=== PATIENT | male | born 1965 | race African-American/Black ===

== ENCOUNTER 2019-03-13 06:16 | Day surgery (SDC) | payer BC ==
[2019-03-07 10:03] LABS: Absolute Lymphocytes (CBC) 1.2 K/uL (0.7-4.9); Basophils % 0.2 % (0-1.3); Lymphocytes % 36.6 % (15.3-44.8); MPV 10.6 fL (7.6-11.3)
[2019-03-07 10:10] LABS: Protime INR 0.96
[2019-03-07 10:21] LABS: Potassium 3.8 mmol/L (3.5-5.1)
--- NOTE | 2019-03-07 10:46 | RAD REPORT ---
EXAM DESCRIPTION: RAD - Chest Pa And Lat (2 Views) - 03/07/2019 9:49 am CLINICAL HISTORY: Preop chest, pending foot surgery COMPARISON: None. TECHNIQUE: PA and lateral views of the chest were obtained. FINDINGS: The lungs are clear. Heart size is normal and central vasculature is within normal limit s. No pleural effusion or pneumothorax seen. No acute bony finding noted. No aortic abnormality. IMPRESSION: No acute cardiopulmonary process.
--- NOTE | 2019-03-07 12:19 | EKG ---
Test Date: 2019-03-07 Test Time: 09:35:55 [place]er: [place] MEASUREMENT RESULTS: Intervals: Rate: 55 TX: 170 QRSD: 96 QT: 468 QTc: 447 [place]: P: 32 TX: 170 QRS: -23 T: 18 INTERPRETIVE STATEMENTS: Sinus bradycardia with sinus arrhythmia Otherwise normal ECG Compared to ECG 03/12/2016 09:12:49 Sinus rhythm no longer present Electronically Signed On 03-07-19 12:18:31 CDT by Kei Pizano
--- NOTE | 2019-03-12 12:45 | PREOPHP ---
Date of Admission: 03/07/2019 History Of Present Illness: This patient presented to my office with a chief complaint of a painful big toe joint present in the right foot, present for a number of years on and off, but now constant, throbbing in nature, moderate in severity, relieved by rest, worse with activity. Patient has modifi ed in shoe gear. Taken [id number] anti-inflammatories, all to no avail and requests evaluation . Past Medical History: Includes hypertension, gout, GERD, and diverticulitis. Past Surgical History: Patient has previous history of right ACL repair, right rotator cuff, right c arpal tunnel, right ankle surgery, and gastric procedure. Medications: Include esomeprazole, tamsulosin, amlodipine, spironolactone, lisinopril 20 mg, and hyd rochlorothiazide 12.5 mg. Allergies: WELLBUTRIN. Social History: Patient is a former smoker. Admits to occasional beer. No recreational drug use. Family History: Includes diabetes in his uncle and cancer in the aunt. Physical Examination: General: Weight is 270 pounds, height 5 feet 9 inches. Patient is healthy, well developed, well nou rished, well oriented x3. Vascular: Evaluation reveals dorsalis pedis and posterior tibial pulses to be 4/4 bilaterally. Capi llary refill time is less than 3 seconds to all toes. Temperature gradient is within normal limits. There is no claudication complaint, varicosities, or signs of DVT. Musculoskeletal: Evaluation reveals flexible pes planus foot type bilaterally. Subtalar joint shows normal position bilaterally, but there is forefoot supinatus and adductus bilaterally. There is a m edial eminence of the first metatarsal head with range of motion to 80 degrees bilaterally. Equinus is noted to be 5 degrees bilaterally per goniometer measurement. Digital exam reveals a mild contrac ture of the second toe bilaterally, semiflexible in nature. Muscle testing for the lower extremity i s unremarkable. The ankle assessment is within normal limits. Plantar fascia shows no tenderness, s ubcutaneous soft tissue masses are not noted bilaterally. Dermatologic: Evaluation reveals no ulcer tumor or contracture of the skin bilaterally. There is di screte gross on the plantar service surface, too numerous to count, without redness, swelling, temp, or drainage. These are discrete seed corns. Neurologic: Evaluation reveals deep tendon reflexes for the patellar and Achilles to be 5/5 bilatera lly. Vibratory and sharp dull sensation within normal limits. X-ray evaluation of the right foot reveals no fracture, tumor, or degenerative joint disease seen. T he first metatarsal is within normal limits on the lateral view. There is an inferior and posterior calcaneal spur present. There is a lateral deviation of the hallux and sesamoids with increase in th e intermetatarsal angle. Intermetatarsal angle measures 13 degrees. Hallux abductus angle is 15 deg tyree. Diagnoses: Hallux valgus, right foot, metatarsus primus varus, right foot and pain in the right foot joints. The patient has been given orthotics, which did not relieve any discomfort and as mentioned , patient has modified shoe gear, taking anti-inflammatories, which he cannot take in significant ernie unts due to his gastric issues with diverticulitis and GERD. Patient elects for surgical management. Recommended procedures were a first metatarsal osteotomy with bunionectomy and fixation. Patient und erstands risks, benefits, and alternatives of the above-mentioned procedure including, but not limite d to the risk of pain, swelling, numbness, stiffness, infection, nonhealing of skin or bone, recurren ce of the deformity. Risk of DVT and PE have been explained to the patient as well as the signs and symptoms. Patient has had preoperative labs performed. Medical H and P will be done by Anesthesia. Patient has been instructed on use of cold therapy machine with written instructions given, which wi ll be given at postop. Due to lack of response to conservative treatment, patient no longer desires conservative care and requests surgical management. NETO Voice ID: [id number]
--- OUTSIDE RECORDS SUMMARY | 2019-03-13 06:20 | XMS REPORT | Continuity of Care Document ---
:1965 Author Organization [employer] Care Team Providers Name Role Phone [employer] Unavailable Unavailable Problems Problem Status Onset Classification Date Comments Source Date Reported K57.92 Active 01/26/[address] UNK Active 01/26/[address] Colon polyps Resolved Problem 02/11/2016 [facility] Diverticulitis Active Problem 02/11/2016 [facility] High blood Active Problem 02/11/2016 pressure [facility] Obesity Active Problem 02/11/2016 [facility] DVTRCLI OF Active INTEST, PART [facility] UNSP, W/O PERF O Medications Medication Details Route Status Patient Ordering Order Source Instructions Provider Date Acetaminophen 300 1 tab, PO, Active MG / Codeine Q6H, PRN for 2015 Phosphate 30 MG pain, # 30 Oral Tablet tab, 0 [Tylenol with Refill(s) Codeine #3] Spironolactone 25 mg=2 tab, Active PO, Daily, # 2015 60 tab, 0 Refill(s) Hydrochlorothiazid 1 tab, PO, Active e 12.5 MG / BID, 0 2015 Lisinopril 20 MG Refill(s) Oral Tablet Hydrochlorothiazid 1 tab, Route: No Longer e 12.5 MG / PO, Drug Form: Active 2015 Lisinopril 20 MG TAB, Dosing Oral Tablet Weight 119.659, kg, Daily, Start date: 02/07/16 9:00:00 CDT, Duration: 30 day, Stop date: 03/07/16 9:00:00 CDT Spironolactone 25 mg, 1 tab, No Longer Route: PO, Active 2015 Drug form: TAB, BID, Dosing Weight 119.659, kg, Start date: 02/06/16 17:00:00 CDT, Duration: 30 day, Stop date: 03/07/16 9:00:00 CDTNotes: (Same As: Aldactone) Microzide 12.5 mg, 1 No Longer cap, Route: Active 2015 [facility] PO, Drug form: CAP, Daily, Start date: 02/06/16 13:00:00 CDT, Duration: 30 day, Stop date: 03/07/16 9:00:00 CDTNotes: (Same as: Microzide) With food. Prinivil 20 mg, 1 tab, No Longer Route: PO, Active 2015 [facility] Drug form: TAB, Daily, Start date: 02/06/16 13:00:00 CDT, Duration: 30 day, Stop date: 03/07/16 9:00:00 CDTNotes: (Same as: Prinivil, Zestril) Amlodipine 10 mg, 2 tab, No Longer Route: PO, Active 2015 [facility] Drug form: TAB, Daily, Dosing Weight 119.659, kg, Start date: 02/06/16 13:00:00 CDT, Duration: 30 day, Stop date: 03/07/16 9:00:00 CDTNotes: (Same as: Norvasc) Hydrochlorothiazid 1 tab, PO, Active e 12.5 MG / Daily, 0 2015 [facility] Lisinopril 20 MG Refill(s) Oral Tablet Acetaminophen 325 1 tab, Route: No Longer MG / Hydrocodone PO, Drug Form: 2015 [facility] Bitartrate 10 MG TAB, Dosing Oral Tablet [[place] Weight 10/325] 119.659, kg, Q4H, PRN Pain Score 1-3, Start date: 02/06/16 9:39:00 CDT, Duration: 30 day, Stop date: 03/07/16 9:38:00 CDTNotes: Do not exceed 4gm/day of acetaminophen. (Same as: [place] 325/10) Dilaudid 1 mg, 1 mL, No Longer Route: IV, Active 2015 [facility] Drug form: INJ, Q3H, Dosing Weight 119.659, kg, PRN Pain Score 7-10, Start date: 02/06/16 9:37:00 CDT, Duration: 30 day, Stop date: 03/07/16 9:36:00 CDT Pneumovax 23 0.5 mL, Route: Inactive IM, Drug Form: 2015 [facility] INJ, Daily, Start date: 02/05/16 12:44:00 CDT, Duration: 1 doses or times, Stop date: 02/05/16 12:44:00 CDTNotes: (Same as: Pneumovax 23) Refrigerate Lactated Ringers 1,000 mL, No Longer 1,000 mL Rate: 60 Active 2015 [facility] ml/hr, Infuse over: 16.7 hr, Route: IV, Dosing Weight 119.659 kg, Total Volume: 1,000, Start date: 02/05/16 9:12:00 CDT, Stop date: 03/06/16 9:11:00 CDT pneumococcal 0.5 mL, Route: Inactive capsular IM, Drug Form: 2015 [facility] polysaccharide INJ, Daily, type 1 vaccine / Start date: pneumococcal 02/05/16 capsular 9:00:00 CDT, polysaccharide Duration: 1 type 10A vaccine / doses or pneumococcal times, Stop capsular date: 02/05/16 polysaccharide 9:00:00 type 11A vaccine / CDTNotes: pneumococcal (Same as: capsular Pneumovax 23) polysaccharide Refrigerate type 12F vaccine / pneumococcal capsular polysacchar Lovenox 40 mg, 0.4 mL, No Longer Route: SUB-Q, Active 2015 [facility] Drug form: INJ, [id number], Dosing Weight 119.659, kg, Start date: 02/05/16 9:00:00 CDT, Duration: 30 day, Stop date: 03/05/16 9:00:00 CDTNotes: (Same as: Lovenox) Sodium Chloride 500 mL, 500 Inactive 0.154 MEQ/ML ml/hr, Infuse 2015 [facility] Injectable Over: 1 hr, Solution Route: IV, 500, Drug form: INJ, ONCE, Priority: STAT, Dosing Weight 119.659 kg, Start date: 02/05/16 0:17:00 CDT, Duration: 1 doses or times, Stop date: 02/05/16 0:17:00 CDT Famotidine 20 mg, 1 tab, No Longer Route: PO, Active 2015 [facility] Drug form: TAB, Q12H, Dosing Weight 119.659, kg, Start date: 02/04/16 21:00:00 CDT, Duration: 30 day, Stop date: 03/05/16 9:00:00 CDTNotes: (Same as: Pepcid) Cefoxitin 1000 MG 1 gm, Route: No Longer Injection IVPB, ABXQ6H, 2015 [facility] Dosing Weight 119.659, kg, Start date: 02/04/16 21:00:00 CDT, Duration: 1 day, Stop date: 02/05/16 15:00:00 CDTNotes: (Same As: Mefoxin) Flagyl 500 mg, 100 No Longer mL, Route: 2015 [facility] IVPB, Drug form: INJ, ABXQ8H, Start date: 02/04/16 20:00:00 CDT, Duration: 1 day, Stop date: 02/05/16 12:00:00 CDTNotes: (Same as: Flagyl) Avoid alcohol. Ofirmev 1,000 mg, 100 No Longer mL, Route: IV, 2015 [facility] Drug form: INJ, Q6H, Dosing Weight 119.659, kg, for > or=50 kg, Start date: 02/04/16 18:00:00 CDT, Duration: 30 day, Stop date: 03/05/16 12:00:00 CDTNotes: Infuse over 15 minutes Do not exceed 4gm/day of acetaminophen MEDICATION WASTE Product Size: 1000 mg Product Wasted: ___ mg Entereg 12 mg, 1 cap, No Longer Route: PO, 2015 [facility] Drug form: CAP, BID, Dosing Weight 119.659, kg, Start date: 02/04/16 17:00:00 CDT, Duration: 7 day, Stop date: 02/11/16 9:00:00 CDTNotes: Same as: Entereg Maximum of 15 doses Alert Restricted medication Alvimopan (Entergen) order form must be completed prior to dispensing. metroNIDAZOLE 500 mg, Route: Inactive (SCIP) IVPB, Drug 2015 [facility] form: INJ, Q8H, Dosing Weight 119.659, kg, Start date: 02/04/16 16:00:00 CDT, Duration: 1 day, Stop date: 02/05/16 8:00:00 CDT Hydromorphone 15 mg, 30 mL, No Longer Route: IV, Active 2015 [facility] Initial Loading Dose: 0.4mg, ASSOCIATE TECHNICIAN Dose: 0.2 mg, ASSOCIATE TECHNICIAN Lockout: 10 minutes, Continuous Basal Rate: 0 mg, 4 Hour Limit (In MG): 6, Drug Form: INJ, Continuous, Start date: 02/04/16 15:00:00 CDT, Duration: 30 day, Stop date: 03/05/16...Not es: (Same as: Dilaudid) conc=0.5 mg/ml Hydromorphone ASSOCIATE TECHNICIAN Dose: ;Delay: ;Basal: glycopyrrolate Route: IV, Inactive (ANES) Drug form: 2015 [facility] INJ, ONCE, Stop date: 02/04/16 14:58:00 CDT ondansetron (ANES) Route: IV, Inactive Drug form: 2015 [facility] INJ, ONCE, Stop date: 02/04/16 14:58:00 CDT neostigmine (ANES) Route: IV, Inactive Drug form: 2015 [facility] INJ, ONCE, Stop date: 02/04/16 14:58:00 CDT cefOXitin (ANES) Route: IV, Inactive Drug form: 2015 [facility] INJ, ONCE, Stop date: 02/04/16 14:58:00 CDT Naloxone 0.04 mg, 0.1 No Longer mL, Route: Active 2015 [facility] IVP, Drug form: INJ, Q2MIN, Dosing Weight 119.659, kg, PRN Narcotic Reversal, Start date: 02/04/16 14:54:00 CDT, Duration: 30 day, Stop date: 03/05/16 14:53:00 CDTNotes: Same as Narcan NS + KCL 20mEq/L 1,000 mL, No Longer 1000ml (Premix) Rate: 150 Active 2015 [facility] 1,000 mL ml/hr, Infuse over: 6.7 hr, Route: IV, Dosing Weight 119.659 kg, Total Volume: 1,000, Start date: 02/04/16 14:54:00 CDT, Stop date: 03/05/16 14:53:00 CDTNotes: PREMIX IV - Do Not Alter WASTE: F/P - Sink; E - Municipal Trash Bin Promethazine 12.5 mg, 0.5 No Longer mL, Route: Active 2015 [facility] IVPB, Q4H, Dosing Weight 119.659, kg, PRN Nausea & Vomiting, Start date: 02/04/16 14:54:00 CDT, Duration: 30 day, Stop date: 03/05/16 14:53:00 CDTNotes: Do not give IV push. (Same as: Phenergan) Ondansetron 4 mg, 2 mL, No Longer Route: IVP, Active 2015 [facility] Drug form: INJ, Q6H, Dosing Weight 119.659, kg, PRN Nausea & Vomiting, Start date: 02/04/16 14:54:00 CDT, Duration: 30 day, Stop date: 03/05/16 14:53:00 CDTNotes: (Same as: Zofran) MEDICATION WASTE Product Size: 4 mg Product Wasted: ___ mg phenylephrine Route: IV, Inactive (ANES) Drug form: 2015 [facility] INJ, ONCE, Stop date: 02/04/16 13:07:00 CDT cefOXitin (ANES) Route: IV, Inactive (ANES) Drug form: 2015 [facility] INJ, Start date: 02/04/16 13:00:00 CDT, Stop date: 02/04/16 14:00:00 CDT lidocaine (ANES) Route: IV, Inactive Drug form: 2015 [facility] INJ, ONCE, Stop date: 02/04/16 12:57:00 CDT propofol (ANES) Route: IV, Inactive Drug form: 2015 [facility] INJ, ONCE, Stop date: 02/04/16 12:57:00 CDT fentaNYL (ANES) Route: IV, Inactive Drug form: 2015 [facility] INJ, ONCE, Stop date: 02/04/16 12:57:00 CDT succinylcholine Route: IV, Inactive (ANES) Drug form: 2015 [facility] INJ, ONCE, Stop date: 02/04/16 12:57:00 CDT rocuronium (ANES) Route: IV, Inactive Drug form: 2015 [facility] INJ, ONCE, Stop date: 02/04/16 12:57:00 CDT midazolam (ANES) Route: IV, Inactive Drug form: 2015 [facility] SOLN, ONCE, Stop date: 02/04/16 12:52:00 CDT acetaminophen Route: IV, Inactive (ANES) (ANES) Drug form: 2015 [facility] INJ, Start date: 02/04/16 12:37:00 CDT, Stop date: 02/04/16 13:37:00 CDT metroNIDAZOLE Route: IV, Inactive (ANES) (ANES) Drug form: 2015 [facility] INJ, Start date: 02/04/16 12:27:00 CDT, Stop date: 02/04/16 13:27:00 CDT ciprofloxacin Route: IV, Inactive (ANES) (ANES) Drug form: 2015 [facility] INJ, Start date: 02/04/16 12:18:00 CDT, Stop date: 02/04/16 13:18:00 CDT LR 1000 mL INJ Route: IV, Inactive (ANES) Total Volume: 2015 [facility] 1,000, Start date: 02/04/16 12:12:00 CDT, Stop date: 02/04/16 13:12:00 CDT Calcium Chloride 1,000 mL, Inactive 0.0014 MEQ/ML / Rate: 25 2015 [facility] Potassium Chloride ml/hr, Infuse 0.004 MEQ/ML / over: 40 hr, Sodium Chloride Route: IV, 0.103 MEQ/ML / Dosing Weight Sodium Lactate 119.659 kg, 0.028 MEQ/ML Total Volume: Injectable 1,000, Start Solution date: 02/04/16 12:05:00 CDT, Duration: 30 day, Stop date: 03/05/16 12:04:00 CDT Entereg 12 mg, Route: Inactive PO, Drug form: 2015 [facility] CAP, ONCE, Dosing Weight 119.659, kg, Start date: 02/04/16 10:18:00 CDT, Stop date: 02/04/16 10:18:00 CDT Allergies, Adverse Reactions, Alerts Substance Category Reaction Severity Reaction Status Date Comments Source type Reported Wellbutrin Assertion Moderate Drug Active allergy [facility] Immunizations Immunization Date Site Status Last Updated Comments Source Given pneumococcal Left completed [facility] 23-valent 6 deltoid vaccine Results Order Name Results Value Reference Date Interpretation Comments Source Range CHEM PANEL eGFR 77 02/05 Result Comment: The [facility] eGFR is calculated using the CKD-EPI formula. In most young, healthy individuals the eGFR will be >90 mL/min/1.73m2 . The eGFR declines with age. An eGFR of 60-89 may be normal in some populations, particularly the elderly, for whom the CKD-EPI formula has not been extensively validated. Use of the eGFR is not recommended in the following populations:< br/>
Danielle viduals with unstable creatinine concentration s, including patients and those with serious co-morbid conditions.<b r/>
Patie nts with extremes in muscle mass or diet.

The data above are obtained from the National Kidney Disease Education Program (NKDEP) which additionally recommends that when the eGFR is used in patients with extremes of body mass index for purposes of drug dosing, the eGFR should be multiplied by the estimated BMI. CHEM PANEL CO2 27 24 - 32 02/05 [facility] CHEM PANEL AGAP 13.0 10.0 - 07/08 MH 20.0 [facility] CHEM PANEL Calcium Lvl 9.4 8.5 - 10.5 02/05 [facility] CHEM PANEL BUN 14 7 - 22 02/05 [facility] CHEM PANEL Creatinine 1.25 0.50 - 07/08 MH Lvl 1.40 [facility] CHEM PANEL Glucose Lvl 99 70 - 99 02/05 [facility] CHEM PANEL Chloride Lvl 101 95 - 109 02/05 [facility] CHEM PANEL Potassium 4.0 3.5 - 5.1 / Lvl [facility] CHEM PANEL Sodium Lvl 137 135 - 145 07/08 [facility] CHEM PANEL Glucose Lvl 143 70 - 99 02/04 [facility] CHEM PANEL Creatinine 1.78 0.50 - 07 MH Lvl 1.40 [facility] CHEM PANEL BUN 19 7 - 22 02/04 [facility] CHEM PANEL Sodium Lvl 140 135 - 145 02/04 [facility] CHEM PANEL eGFR 50 02/04 Result Comment: The [facility] eGFR is calculated using the CKD-EPI formula. In most young, healthy individuals the eGFR will be >90 mL/min/1.73m2 . The eGFR declines with age. An eGFR of 60-89 may be normal in some populations, particularly the elderly, for whom the CKD-EPI formula has not been extensively validated. Use of the eGFR is not recommended in the following populations:< br/>
Danielle viduals with unstable creatinine concentration s, including patients and those with serious co-morbid conditions.<b r/>
Patie nts with extremes in muscle mass or diet.

The data above are obtained from the National Kidney Disease Education Program (NKDEP) which additionally recommends that when the eGFR is used in patients with extremes of body mass index for purposes of drug dosing, the eGFR should be multiplied by the estimated BMI. CHEM PANEL AGAP 11.6 10.0 - 02/04 20. [facility] CHEM PANEL CO2 28 24 - 32 02/04 [facility] CHEM PANEL Calcium Lvl 8.8 8.5 - 10.5 02/04 [facility] CHEM PANEL Potassium 4.6 3.5 - 5.1 02/04 [facility] CHEM PANEL Chloride Lvl 105 95 - 109 02/04 [facility] CHEM PANEL Calcium Lvl 8.9 8.5 - 10.5 02/04 [facility] CHEM PANEL Phosphorus 3.1 2.5 - 4.5 02/04 [facility] CHEM PANEL Magnesium 2.4 1.8 - 2.4 02/04 [facility] CHEM PANEL eGFR 36 02/04 Result Comment: The [facility] eGFR is calculated using the CKD-EPI formula. In most young, healthy individuals the eGFR will be >90 mL/min/1.73m2 . The eGFR declines with age. An eGFR of 60-89 may be normal in some populations, particularly the elderly, for whom the CKD-EPI formula has not been extensively validated. Use of the eGFR is not recommended in the following populations:< br/>
Danielle viduals with unstable creatinine concentration s, including patients and those with serious co-morbid conditions.<b r/>
Patie nts with extremes in muscle mass or diet.

The data above are obtained from the National Kidney Disease Education Program (NKDEP) which additionally recommends that when the eGFR is used in patients with extremes of body mass index for purposes of drug dosing, the eGFR should be multiplied by the estimated BMI. CHEM PANEL Chloride Lvl 103 95 - 109 02/04 [facility] CHEM PANEL CO2 27 24 - 32 02/04 [facility] CHEM PANEL AGAP 12.0 10.0 - 07/ MH 20.0 /2015 [facility] CHEM PANEL Calcium Lvl 8.9 8.5 - 10.5 02/04 [facility] CHEM PANEL Creatinine 2.32 0.50 - 02/04 MH Lvl 1.40 /2015 [facility] CHEM PANEL Sodium Lvl 137 135 - 145 02/04 [facility] CHEM PANEL Potassium 5.0 3.5 - 5.1 02/04 Lvl /2015 [facility] CHEM PANEL Glucose Lvl 136 70 - 99 02/04 [facility] CHEM PANEL BUN 22 7 - 22 02/04 [facility] HEMATOLOGY Hct 41.4 42.0 - 02/04 MH 54.0 /2015 [facility] HEMATOLOGY Hgb 13.5 14.0 - 02/04 MH 18.0 /2015 [facility] HEMATOLOGY Platelet 195 133 - 450 02/04 [facility] CHEM PANEL Bili Total 0.5 0.2 - 1.3 02/03 [facility] CHEM PANEL Alk Phos 62 39 - 136 02/03 [facility] CHEM PANEL AST 23 0 - 37 02/03 [facility] CHEM PANEL Albumin Lvl 3.4 3.5 - 5.0 02/03 [facility] CHEM PANEL ALT 26 0 - 65 07 [facility] CHEM PANEL Total 9.1 6.4 - 8.4 02/03 [facility] CHEM PANEL A/G Ratio 0.6 0.7 - 1.6 02/03 [facility] CHEM PANEL Globulin 5.7 2.0 - 4.0 02/03 [facility] CHEM PANEL B/C Ratio 10 6 - 25 / [facility] HEMATOLOGY Monocytes # 0.8 0.0 - 0.8 02/03 [facility] HEMATOLOGY Basophils # 0.1 0.0 - 0.2 07/06 MH /2016 [facility] HEMATOLOGY Eosinophils 0.2 0.0 - 0.5 07/06 MH # /2016 [facility] HEMATOLOGY Basophils 0.9 0.0 - 1.0 07/ MH /2015 [facility] HEMATOLOGY Lymphocytes 1.4 1.0 - 5.5 07/ MH # /2016 [facility] HEMATOLOGY Segs-Bands # 5.6 1.5 - 8.1 07/ MH /2015 [facility] HEMATOLOGY Monocytes 9.9 2.0 - 12.0 / /2015 [facility] HEMATOLOGY Eosinophils 2.3 0.0 - 4.0 07/ MH /2016 [facility] HEMATOLOGY Segs 69.4 45.0 - 07 MH 75.0 /2015 [facility] HEMATOLOGY Lymphocytes 17.5 20.0 - / MH 40.0 /2015 [facility] HEMATOLOGY Hgb 14.7 14.0 - 02/03 MH 18.0 /2015 [facility] HEMATOLOGY MPV 9.5 7.4 - 10.4 / /2015 [facility] HEMATOLOGY Platelet 212 133 - 450 / /2015 [facility] MCHC 32.8 32.0 - 02/03 MH 36.0 /2015 [facility] HEMATOLOGY RDW 13.5 11.5 - 02/03 MH 14.5 /2015 [facility] HEMATOLOGY Hct 44.8 42.0 - 02/03 MH 54.0 /2016 [facility] HEMATOLOGY MCV 93.1 80.0 - 02/03 MH 94.0 /2015 [facility] HEMATOLOGY MCH 30.5 27.0 - 02/03 MH 31.0 /2015 [facility] HEMATOLOGY WBC 8.1 3.7 - 10.4 / /2015 [facility] HEMATOLOGY RBC 4.81 4.70 - 02/03 6.10 /2015 [facility] HEMATOLOGY INR 1.02 0.85 - 02/03 1.17 /2015 [facility] HEMATOLOGY PT 13.7 12.0 - 02/03 MH 14.7 /2015 [facility] HEMATOLOGY PTT 29.4 22.9 - 02/03 MH 35.8 /2015 [facility] URINE AND UA <=1.0 0.1 - 1.0 / STOOL Urobilinogen mg/dL /2015 [facility] URINE AND UA WBC 1 0 - 5 / STOOL /2016 [facility] URINE AND UA RBC <1 0 - 2 / STOOL /2016 [facility] URINE AND UA Bacteria Occasional None Seen 02/03 [facility]OOL /HPF /HPF /2015 [facility] URINE AND UA Mucus Few /LPF None Seen 02/03 [facility]OOL /LPF [facility] URINE AND UA Sq Epi Occasional Few /LPF 02/03 [facility]OOL /LPF [facility] URINE AND UA Glucose Negative Negative 02/03 [facility] mg/dL mg/dL [facility] URINE AND UA Ketones Negative Negative 02/03 [facility] mg/dL mg/dL [facility] URINE AND UA Bili Negative Negative 02/03 [facility] *NA* /2015 (02/04/16 10:31 AM) URINE AND UA Blood Negative Negative 02/03 [facility] (02/04/16 10:31 AM) URINE AND UA Nitrite Negative Negative 02/03 [facility] (02/04/16 10:31 AM) [facility] URINE AND UA Leuk Est Trace Negative 02/03 [facility] *ABN* /2015 [facility] (02/04/16 10:31 AM) URINE AND UA Turbidity Clear Clear 02/03 [facility] (02/04/16 10:31 AM) URINE AND UA Color Yellow Yellow 02/03 [facility] *NA* /2015 (02/04/16 10:31 AM) URINE AND UA Spec Grav 1.018 <=1.030 02/03 STOOL [facility] URINE AND UA pH 5.0 5.0 - 8.0 02/03 STOOL [facility] URINE AND UA Protein Negative Negative 02/03 [facility] mg/dL mg/dL [facility] Pathology Reports No Data Provided for This Section Diagnostic Reports Report Value Date Source Renal pyelogram Bilateral retrograde pyelogram: Spot images from the operating room show bilateral ureteral catheters with the tips at the ureteropelvic junctions. Contrast injection shows normal caliber of the collecting systems. 02/04/2016 [facility] retrograde DX SL [id number] Chest 1view DX PA chest: The cardiomediastinal silhouette, pulmonary vasculature and more are within normal limits. The lungs and pleural spaces are clear. There are no significant osseous abnormalities. 02/04/2016 [facility] IMPRESSION: No acute radiographic abnormalities in the chest. SL [id number] Consultation Notes No Data Provided for This Section Discharge Summaries No Data Provided for This Section History and Physicals No Data Provided for This Section Vital Signs Vital Sign Value Date Comments Source Systolic (mm Hg) 147 02/08/2016 [facility] Diastolic (mm Hg) 88 02/08/2016 [facility] Respitory Rate 16 02/08/2016 [facility] Heart Rate 84 02/08/2016 [facility] Temperature Oral (F) 98.4 F 02/08/2016 [facility] Heart Rate 60 02/08/2016 [facility] Temperature Oral (F) 98.4 F 02/08/2016 [facility] Respitory Rate 16 02/08/2016 [facility] Systolic (mm Hg) 153 02/08/2016 [facility] Diastolic (mm Hg) 71 02/08/2016 [facility] Temperature Oral (F) 98.8 F 02/08/2016 [facility] Systolic (mm Hg) 154 02/08/2016 [facility] Diastolic (mm Hg) 99 02/08/2016 [facility] Respitory Rate 16 02/08/2016 [facility] Heart Rate 77 02/08/2016 [facility] Height 177.8 cm 01/29/2016 [facility] BMI Calculated 37.85 01/29/2016 [facility] Weight 119.659 01/29/2016 [facility] Encounters Location Location Encounter Encounter Reason Attending ADM DC Status Source Details Type Number For Provider Date Date Visit Outpatient [id number] THEODORO 09/[address] [facility] [place] Outpatient [id number] THEODOROS 01/[address] [facility] [place] Outpatient [id number] THEODOROS 01/[address] [facility] [place] Outpatient [id number] THEODOROS 02/[address] [facility] [place] [id number] Theodoros 02/03 02/07 [facility] [place] [facility] Out[facility] [id number] GRACE CATES 02/15 [facility] [place] [facility] [id number] [facility] [facility] [place] [facility] [id number] [facility] [facility] [place] Procedures Procedure Code Date Perfomer Comments Source Operation [id number] [facility] Assessment and Plan Assessment and Plan Date Source Extracted from:Title: Clinical Document 02/08/2016 [facility] Author: Kena Swartz MD Date: 02/07/16 Progress Daily [facility] Completed: Jan, 15:47 by Kena Swartz MD RM: 320 - 2W, SE C3BW MACK TORRES 50y (: 1965) M Attending: Kena Swartz MD Service: Colon and Rectal Surg Service Reason for Admission: K57.92 Working DRG: Major small and large bowel procedures w/o CC/CHCF Code status: None Specified=FULL CODE Current diet: Isolation: None Documented Allergies: Wellbutrin SUBJECTIVE on soft diet no pain no flatus or BM yet OBJECTIVE General: AOx3, in no acute distress. Cardiovascular: Regular rate and rhythm, no murmurs or gallop. No peripheral edema. Genitourinary: Normal genitalia. Extremities: Normal muscle tone and range of motion; no cyanosis or tenderness. Skin: Normal color, turgor, no rash or cyanosis. Abdomen is soft non-distended, incision site c/d/i; no evidence of purulence ASSESSMENT and EXAM await return of GI function plan for dc home once he has flatus. pathology discussed PLAN and TREATMENT DIAGNOSES and PROBLEMS Ready for Discharge (Yes/No)? [place] still necessary (Yes/No): Line still necessary (Yes/No): 24hr Labs 02/06 1200 Glucose POC 105 H Vitals Tmp(F) Pulse BP RR SpO2 FIO2 02/06 19:00 98.5 75 130/86 16 97 --- 02/06 15:54 98.0 78 149/88 18 93 --- 02/06 11:44 98.7 80 160/98 16 93 --- 02/06 09:16 98.7 73 136/80 18 --- --- 02/06 07:57 99 78 173/118 18 94 --- 24 Hr Tmax: 99.1F (37.28c) at 02/06 00:55 Vital Signs are the last 5 in the past 48 hours. Date Wt(kg) Wt(lb) Ht(cm) Ht(in) Method 01/28 (initial) 119.66 263.25 Measured 01/28 177.80 70.00 Stated I&O Record In Out Bal 02/06 24hr Tot 967 200 767 02/05 24hr Tot 2051 830 1354 Medications (12) Active Scheduled Meds (6): 02/06/16 amLODIPine 10 mg PO Daily 02/05/16 enoxaparin (Lovenox) 40 mg SUB-Q [id number] 02/04/16 famotidine 20 mg PO Q12H 02/06/16 hydrochlorothiazide (Microzide) 12.5 mg PO Daily 02/06/16 lisinopril (Prinivil) 20 mg PO Daily 02/06/16 spironolactone 25 mg PO BID Unscheduled Meds: None PRN Meds (5): 02/06/16 acetaminophen-hydrocodone ([place] 10/325 oral tablet) 1 tab PO Q4H 02/06/16 hydromorphone (Dilaudid) 1 mg IV Q3H 02/04/16 naloxone 0.04 mg IVP Q2MIN 02/04/16 ondansetron 4 mg IVP Q6H 02/04/16 promethazine + sodium chloride 0.9% INJ 50 mL 12.5 mg IVPB Q4H 151.5 ml/hr One Time Meds: None Continuous Infusions (1): 02/05/16 Lactated Ringers 1,000 mL 1,000 mL 60 ml/hr Extracted from:Title: Clinical Document Author: Kena Swartz MD Date: 02/04/16 PREOPERATIVE DIAGNOSIS: Sigmoid diverticulitis. POSTOPERATIVE DIAGNOSIS: Sigmoid diverticulitis. PROCEDURE PERFORMED: Laparoscopic single port left colectomy with stapled coloproctostomy, splenic flexure mobilization. Cysto-stents/ Dr Nelly WEBBER SURGEON: Dr. Swartz. HOT PATCHER: Grace Cates PA-C. ANESTHESIA: General. IV FLUIDS: 2150 cc Crystalloid ESTIMATED BLOOD LOSS: <100 mL. URINE OUTPUT: 250cc SPECIMENS: Sigmoid colon and proximal rectum and 2 intact anastomotic rings. FINDINGS: Adhesions at the left lower quadrand with evidence of sigmoid diverticulosis without acute diverticulitis at this time. COMPLICATIONS: None. DISPOSITION: Tolerated the procedure well, extubated in the operating room and transferred post-anesthesia care unit in stable hemodynamic condition. COUNTS: The sponge counts were correct x 2. INDICATIONS FOR PROCEDURE: The patient is a 50-year-old male who presents for a laparoscopic single port sigmoid colectomy for multiple episodes of previous sigmoid diverticulitis. The patient understands his condition, the opera tive procedure plan, the risk/benefit ratio and the potential risks for complications as discussed in great detail in the office preoperatively, including but not limited to pain, bleeding, infection, a nastomotic leak, anastomotic stricture, need for divertiing ostomy, need for further procedures and surgeries incisional hernia and damage to the abdominal organs and structures and perioperative cardio pulmonary risks. Informed consent was obtained. All questions were answered to the patient's satisfaction. PROCEDURE IN DETAIL: The patient was brought to the operating room, placed on the table in supine position. General endotracheal anesthesia was induced successfully. IV antibiotics were given preoperatively. SCDs were pl aced on bilateral lower extremities as per SKIP protocol. The abdomen was prepped and draped in usual standard sterile fashion. We made a 4-cm incision via the umbilicus. We inserted a single port gel point and insufflated pneumoperitoneum to 15 mmHg. We identified moderate adhesions in the left lower quadrant and performed adhesiolysis in a sharp fashion; subsequently we addressed the sigmoid colo n and we identified evidence of resolved sigmoid diverticulitis with large diverticulae and fecaliths and evidence of dense mesentery at the medial aspect of the sigmoid colon suggesting the site of the previous episodes of diverticulitis. The proximal descending colon appeared normal. We made a window at the origin of the inferior mesenteric artery proximally and distally and dissected the root of th e sigmoid colon mesentery towards the sacral promontory and we identified and preserved the hypogastric nerves. We performed a left ureterolysis. We dissected the left ureter and skeletonized off dens e retroperitoneal adhesions and protected from injury during the procedure. We hemostatically divided the inferior mesenteric artery with the [employer] device and placed an Endoloop PDS and secur ed hemostasis of the PIPER pedicle. We hemostatically mobilized sharply the descending colon and sigmoid colon medially off the white line of Toldt and entered the presacral avascular space and carried t he dissection towards the proximal rectum and divided the mesorectum at that site at the confluence of the tinea coli and elected a point of distal division and included with the specimen the superior h emorrhoidal artery in a hemostatic fashion and we used an Ovett 60 mm blue triple line Endo-OSMEL and divided the rectum at that site. We mobilized the splenic flexure which was done by mobilizing the s plenocolic, phrenocolic and gastrocolic ligaments and we entered via the antimesenteric border of greater omentum into the lesser sac and completed the mobilization at that site. We identified and pres erved the Gerota's fascia as well as the tail of the pancreas and the spleen and mobilized adequately the colon for a tension-free stapled coloproctostomy. We exteriorized the specimen and evacuat ed the pneumoperitoneum and divided proximally in a sharp fashion with a #10 blade scalpel and passed the specimen to pathology for permanent sections and placed a 28-mm circular Covidean stapler anvil with 3-0 Prolene pursestring and reintroduced into the abdomen and performed a tension-free torsion free stapled coloproctostomy with a #28 mm circular Covidien stapler and retrieved 2 intact anastomoti c rings. The anastomosis was tested for air leak. With rigid proctoscope, we submerged the anastomosis into normal saline in the inner pelvis and compressed proximally and insufflated air with the pro ctoscope and identified no evidence of anastomotic leak. All fluid was suctioned. Hemostasis was satisfactory. We instilled 1 vial Tissel around the anastomosis and the retroperitoneal dissection adilene ne and the procedure was completed. We evacuated the pneumoperitoneum, we placed a single sheet of Seprafilm underneath the midline fascial edges and we approximated the midline fascia edges with #1 PD S in running fashion and obtained hemostasis and approximated the skin edges with dony. The procedure was completed. Extracted from:Title: Clinical Document Author: Kena Swartz MD Date: 02/04/16 [facility] OFFICE VISIT: KENA SWARTZ MD, FACS, FASCRS CC: diverticulitis HPI: The pt presents today for f/u and reports minor improvement in sxs since last office visit. BMs improved after taking the oral abx. But he still complains of pain and "labored BMs". Denies fever, bleeding per rectum Initial HPI: The pt is a 50 year old male kindly referred by Dr. Gr for surgical consultations for sigmoid diverticulitis. They report their first episode on 07/29/15 at which time he presented to an outside ER and was given oral flagyl. CT a/p not available at this time. He then saw Dr. Gr and underwent colonsoco py on 08/05/15 which revealed mild sigmoid colitis, anal fissure, and internal hemorrhoids. He has not had an episode of diverticulitis in the past. Currently the pt reports feeling better. Denies constipation, LLQ pain, bleeding or pain per rectum, diarrhea, nausea, vomiting. However, he still has intermittent rectal bleeding ROS: General: Denies chills, fever, weight loss, weight gain, loss of appetite Eyes: Denies vision loss, retina problems Ears/Nose/Throat: Denies ringing in ears, hearing problems, congestion, dental problems, hoarseness, difficulty swallowing, recent sore throat Cardiovascular: Denies irregular heartbeat, chest pain, heart murmur, abnormal heart valve Pulmonary: Denies productive cough with sputum, shortness of breath, wheezing Genitourinary: Denies frequent urination, blood in urine, urinary incontinence , difficulty urinating, pneumaturia, fecaluri Musculoskeletal: Denies back pain, joint pain, joint swelling Skin: Denies skin rashes, skin itching Neurologic: Denies numbness, weakness, headaches, memory loss, seizures, fainting/blackouts, migraines Psychiatric: Denies anxiety, depression, suicidal thoughts Endocrine: Denies heat/cold intolerance, excessive hunger, excessive thirst, excessive urination, hormonal abnormalities Liver: Denies jaundice Hematologic/Lymphatic: Denies abnormal bleeding, abnormal bruising, enlarged lymph glands PMH: Colon polyps Diverticulitis Operation Operation Tobacco Details: Use: Never smoker. Tobacco smoke exposure: None. Did the Patient Smoke Cigarettes Anytime During the Last 365 Days? No. Cessation Counseling Provided? No. No qualifying data available Allergies: Wellbutrin MEDICATIONS: Medication List Active Medications Documented amLODIPine: 10 mg, PO, Daily, 0 Refill(s). lisinopril: 20 mg, 1 tab, PO, Daily, 0 Refill(s). spironolactone: 25 mg, 1 tab, PO, BID, 0 Refill(s). Medications Inactivated in the Last 72 Hours No medications found. Vitals Tmp(F) Pulse BP RR SpO2 FIO2 01/22 09:11 98.7 --- 136/86 -- --- --- 24 Hr Tmax: 98.7F (37.06c) at 01/22 09:11 Vital Signs are the last 5 in the past 48 hours. PHYSICAL EXAM: General Appearance: Well appearing, well developed, well nourished, well hydrated, good color, and in no acute distress Head: Normocephalic atraumatic Eyes: Pupils equal/round/reactive to light, no scleral icterus, extraocular movements intact, no erythema, no discharge, normal RR, alignment within normal limits Ears: Normal external shape, normal position, normal tympanic membranes, tympanic membranes flat, and normal landmarks Nose: Nares patent and no discharge Mouth: Moist mucous membranes, tongue normal, gingiva normal, palate normal, tonsils normal Neck: Supple, FROM, no thyromegaly, no masses, no cervical lymphadenopathy Chest Wall: No retractions Lungs: CTA bilaterally, no wheezes/rales/rhonchi, and good air entry Heart: Regular rate and regular rhythm, no murmur Abdomen: soft, non distended; persistent LLQ tenderness with minor guarding Musculoskeletal: No obvious deformity. Moves all 4 extremities, stable gait. Lymph: No cervical, axillary or inguinal lymphadenopathy Extremities: Symmetric, no obvious defect, and no cyanosis/clubbing/edema. 2+ pulses in DP/PT/radial bilaterally Neurologic: Alert/appropriate, normal strength, normal tone, and CN II-XII grossly intact. Clear speech, aao x 3. Skin: No nevus no lesions no rash. No jaundice. Psych: Mood congruent affect, responds appropriately to questions. Anorectal: Deferred ASSESSMENT and PLAN: at this time I recommend to proceed with lap single port sigmoid colectomy as he is not improving with medical management he strongly desires to proceed The risks, benefits, and alternatives were discussed with the patient. The risks include, but are not limited to, pain, bleeding, infection, injury to surrounding visceral organs (including nerves, bloo d vessels, ureters, bowel), anastomotic leak, genitourinary dysfunction, need for an ostomy, need for further surgery, and perioperative complications ( myocardial infarction, pulmonary embolus/DVT, pneu monia, ileus, stroke, organ failure, prolonged hospitalization, and ). total exam time spent education, physical exam, and coordination of care > 20minutes Addendum by Kena Swartz MD on 02/04/2016 00:07 No change in the patient's condition since he was last seen in clinic. Plan of Care No Data Provided for This Section Social History Social History Date Source Social History TypeResponse 01/29/2016 [facility] Substance Abuse Use: None. Alcohol Current, Type Beer. Previous treatment: None. Smoking Status Former smoker; Type: Cigarettes; Exposure to Tobacco Smoke None; Cigarette Smoking Last 365 Days No; Reg Smoking Cessation Counseling No Family History No Data Provided for This Section Advance Directives No Data Provided for This Section Functional Status No Data Provided for This Section
--- OUTSIDE RECORDS SUMMARY | 2019-03-13 06:21 | XMS REPORT | Summary of Care ---
:1965 Author Name Rausch Agapito Mirtha Address Unavailable Unavailable , Care Team Providers Name Role Phone TOYA BLAKELY MD Unavailable Unavailable SEPIDEH YOUNG [place], EDISON MAGUIRE Unavailable Unavailable Functional Status Name Dates Details Functional status health issues are not documented Status: Name Dates Details Cognitive status health issues are not documented Status: Problems Name Dates Details Active medical history not documented Status: Medications Name Dates Details Medications not documented Allergies and Adverse Reactions Name Dates Details Allergy history not documented Status: Procedures Procedure Dates Details Procedures not documented Immunization Name Dates Details Immunizations not documented Social History Name Dates Details Unknown if ever smoked Vital Signs Date Test Result Details No Known Vitals to report Results Date Description Value Details Results not documented Plan of Care Name Dates Details Planned Observations Planned Goals not documented Instructions Name Dates Details Instructions not documented Encounters Appointment; EDISON BUNN M.D. On: 04-Oct-2017 8:30 Encounter Diagnosis: Problem not documented Appointment; EDISON BUNN M.D. On: 11-Oct-2017 9:15 Encounter Diagnosis: Problem not documented Appointment; EDISON BUNN M.D. On: 23-Nov-2017 14:15 Encounter Diagnosis: Problem not documented Appointment; EDISON BUNN M.D. On: 13-Dec-2017 15:00 Encounter Diagnosis: Problem not documented Appointment; EDISON BUNN M.D. On: 27-Dec-2017 10:45 Encounter Diagnosis: Problem not documented Appointment; MIKE ORELLANA NP On: 25-Jan-2018 13:15 Encounter Diagnosis: Problem not documented Appointment; MIKE ORELLANA NP On: 08-Mar-2018 13:15 Encounter Diagnosis: Problem not documented Appointment; EDISON BUNN M.D. On: 10-May-2018 13:30 Encounter Diagnosis: Problem not documented
--- OUTSIDE RECORDS SUMMARY | 2019-03-13 06:21 | XMS REPORT | Summary of Care ---
:1965 Author Organization [facility] Address [address] [place], [place] [address]- Encounter HQ Alpa_juan(FIN) [id number] Date(s): 02/04/16 - 02/08/16 [facility] [address] [place] [address]- Discharge Disposition: Home Attending Physician: Kena Swartz MD Admitting Physician: Kena Swartz MD Referring Physician: Kena Swartz MD Vital Signs Most recent to oldest 1 2 3 [Reference Range]: Height 177.8 cm (01/29/16 2:50 PM) Temperature Oral [96.4-99.1 98.4 DegF 98.4 DegF 98.8 DegF DegF] (02/08/16 12:32 PM) (02/08/16 8:30 AM) (02/08/16 3:00 AM) Blood Pressure [90-140/60-90 147/88 mmHg 153/71 mmHg 154/99 mmHg mmHg] *HI* *HI* *HI* (02/08/16 12:32 PM) (02/08/16 8:30 AM) (02/08/16 3:00 AM) Respiratory Rate [14-20 BRMIN] 16 BRMIN 16 BRMIN 16 BRMIN (02/08/16 12:32 PM) (02/08/16 8:30 AM) (02/08/16 3:00 AM) Peripheral Pulse Rate [60-100 84 bpm 60 bpm 77 bpm bpm] (02/08/16 12:32 PM) (02/08/16 8:30 AM) (02/08/16 3:00 AM) Weight 119.659 kg (01/29/16 2:50 PM) Body Mass Index 37.85 m2 (01/29/16 2:50 PM) Problem List Condition Effective Dates Status Health Status Informant Colon polyps(Confirmed) Resolved Diverticulitis(Confirmed) Active Diverticulitis(Confirmed) Resolved High blood pressure(Confirmed) Active Obesity(Confirmed) Active Allergies, Adverse Reactions, Alerts Substance Reaction Severity Status Wellbutrin Moderate Active Medications acetaminophen (ANES) (ANES) Route: IV, Drug form: INJ, Start date: 02/04/16 12:37:00 CDT, Stop date: 13:37:00 CDT Start Date: 02/04/16 Stop Date: 02/04/16 Status: CompletedamLODIPine 10 mg, 2 tab, Route: PO, Drug form: TAB, Daily, Dosing Weight 119.659, kg, Start date: 02/06/16 13:00:00 CDT, Duration: 30 day, Stop date: 03/07/16 9:00: 00 CDT Notes: (Same as: Norvasc) Start Date: 02/06/16 Stop Date: 02/08/16 Status: DiscontinuedcefOXitin (ANES) Route: IV, Drug form: INJ, ONCE, Stop date: 02/04/16 14:58:00 CDT Start Date: 02/04/16 Stop Date: 02/04/16 Status: CompletedcefOXitin (ANES) (ANES) Route: IV, Drug form: INJ, Start date: 02/04/16 13:00:00 CDT, Stop date: 14:00:00 CDT Start Date: 02/04/16 Stop Date: 02/04/16 Status: CompletedcefOXitin (SCIP) + sodium chloride 0.9% INJ 100 mL 1 gm, Route: IVPB, ABXQ6H, Dosing Weight 119.659, kg, Start date: 02/04/16 21:00 :00 CDT, Duration: 1day, Stop date: 02/05/16 15:00:00 CDT Notes: (Same As: Mefoxin) Start Date: 02/04/16 Stop Date: 02/05/16 Status: Completedciprofloxacin (ANES) (ANES) Route: IV, Drug form: INJ, Start date: 02/04/16 12:18:00 CDT, Stop date: 13:18:00 CDT Start Date: 02/04/16 Stop Date: 02/04/16 Status: CompletedDilaudid 1 mg, 1 mL, Route: IV, Drug form: INJ, Q3H, Dosing Weight 119.659, kg, PRN Pain Score 7-10, Start date: 02/06/16 9:37:00 CDT, Duration: 30 day, Stop date: 03/07 9:36:00 CDT Start Date: 02/06/16 Stop Date: 02/08/16 Status: DiscontinuedEntereg 12 mg, 1 cap, Route: PO, Drug form: CAP, BID, Dosing Weight 119.659, kg, Start date: 02/04/16 17:00:00 CDT, Duration: 7 day, Stop date: 02/11/16 9:00:00 CDT Notes: Same as: EnteregMaximum of 15 doses Alert Restricted medication Alvimopan (Entergen) order form must be completed prior to dispensing. Start Date: 02/04/16 Stop Date: 02/05/16 Status: DiscontinuedEntereg 12 mg, Route: PO, Drug form: CAP, ONCE, Dosing Weight 119.659, kg, Start date: 02/04/16 10:18:00 CDT, Stop date: 02/04/16 10:18:00 CDT Start Date: 02/04/16 Stop Date: 02/04/16 Status: Discontinuedfamotidine 20 mg, 1 tab, Route: PO, Drug form: TAB, Q12H, Dosing Weight 119.659, kg, Start date: 02/04/16 21:00:00 CDT, Duration: 30 day, Stop date: 03/05/16 9:00:00 CDT Notes: (Same as: Pepcid) Start Date: 02/04/16 Stop Date: 02/08/16 Status: DiscontinuedfentaNYL (ANES) Route: IV, Drug form: INJ, ONCE, Stop date: 02/04/16 12:57:00 CDT Start Date: 02/04/16 Stop Date: 02/04/16 Status: CompletedFlagyl 500 mg, 100 mL, Route: IVPB, Drug form: INJ, ABXQ8H, Start date: 02/04/16 20:00: 00 CDT, Duration: 1 day, Stop date: 02/05/16 12:00:00 CDT Notes: (Same as: Flagyl) Avoid alcohol. Start Date: 02/04/16 Stop Date: 02/05/16 Status: Completedglycopyrrolate (ANES) Route: IV, Drug form: INJ, ONCE, Stop date: 02/04/16 14:58:00 CDT Start Date: 02/04/16 Stop Date: 02/04/16 Status: Completedhydrochlorothiazide-lisinopril 12.5 mg-20 mg oral tablet 1 tab, PO, Daily, 0 Refill(s) Start Date: 02/06/16 Status: Orderedhydrochlorothiazide-lisinopril 12.5 mg-20 mg oral tablet 1 tab, PO, BID, 0 Refill(s) Start Date: 02/07/16 Status: Orderedhydrochlorothiazide-lisinopril 12.5 mg-20 mg oral tablet 1 tab, Route: PO, Drug Form: TAB, Dosing Weight 119.659, kg, Daily, Start date: 02/07/16 9:00:00 CDT, Duration: 30 day, Stop date: 03/07/16 9:00:00 CDT Start Date: 02/07/16 Stop Date: 02/06/16 Status: DeletedHYDROmorphone PATIENT LIAISON 0.5mg/ml 30ml INJ 15 mg 15 mg, 30 mL, Route: IV, Initial Loading Dose: 0.4mg, PATIENT LIAISON Dose: 0.2 mg, PATIENT LIAISON Lockout: 10 minutes, Continuous Basal Rate: 0 mg, 4 Hour Limit (In MG): 6, Drug Form: INJ, Continuous, Start date: 02/04/16 15:00:00 CDT, Duration: 30 day, Stop date: 03/05/16... Notes: (Same as: Dilaudid) conc=0.5 mg/mlHydromorphone PATIENT LIAISON Dose: ;Delay : ;Basal: Start Date: 02/04/16 Stop Date: 02/06/16 Status: DiscontinuedLactated Ringers 1,000 mL 1,000 mL, Rate: 60 ml/hr, Infuse over: 16.7 hr, Route: IV, Dosing Weight 119.659 kg, Total Volume: 1,000, Start date: 02/05/16 9:12:00 CDT, Stop date: 9:11:00 CDT Start Date: 02/05/16 Stop Date: 02/08/16 Status: DiscontinuedLactated Ringers Injection IV 1000 mL 1,000 mL, Rate: 25 ml/hr, Infuse over: 40 hr, Route: IV, Dosing Weight 119.659 kg, Total Volume: 1,000, Start date: 02/04/16 12:05:00 CDT, Duration: 30 day, Stop date: 03/05/16 12:04:00 CDT Start Date: 02/04/16 Stop Date: 02/04/16 Status: Discontinuedlidocaine (ANES) Route: IV, Drug form: INJ, ONCE, Stop date: 02/04/16 12:57:00 CDT Start Date: 02/04/16 Stop Date: 02/04/16 Status: CompletedLovenox 40 mg, 0.4 mL, Route: SUB-Q, Drug form: INJ, [id number], Dosing Weight 119.659, kg , Start date: 02/05/16 9:00:00 CDT, Duration: 30 day, Stop date: 03/05/16 9:00: 00 CDT Notes: (Same as: Lovenox) Start Date: 02/05/16 Stop Date: 02/08/16 Status: DiscontinuedLR 1000 mL INJ (ANES) Route: IV, Total Volume: 1,000, Start date: 02/04/16 12:12:00 CDT, Stop date: 13:12:00 CDT Start Date: 02/04/16 Stop Date: 02/04/16 Status: CompletedmetroNIDAZOLE (ANES) (ANES) Route: IV, Drug form: INJ, Start date: 02/04/16 12:27:00 CDT, Stop date: 13:27:00 CDT Start Date: 02/04/16 Stop Date: 02/04/16 Status: CompletedmetroNIDAZOLE (SCIP) 500 mg, Route: IVPB, Drug form: INJ, Q8H, Dosing Weight 119.659, kg, Start date : 02/04/16 16:00:00 CDT, Duration: 1 day, Stop date: 02/05/16 8:00:00 CDT Start Date: 02/04/16 Stop Date: 02/04/16 Status: DeletedmetroNIDAZOLE (SCIP) 500 mg, Route: IVPB, Drug form: INJ, Q8H, Dosing Weight 119.659, kg, Start date : 02/04/16 16:00:00 CDT, Duration: 1 day, Stop date: 02/05/16 8:00:00 CDT Start Date: 02/04/16 Stop Date: 02/04/16 Status: DeletedMicrozide 12.5 mg, 1 cap, Route: PO, Drug form: CAP, Daily, Start date: 02/06/16 13:00:00 CDT, Duration: 30 day, Stop date: 03/07/16 9:00:00 CDT Notes: (Same as: Microzide) With food. Start Date: 02/06/16 Stop Date: 02/08/16 Status: Discontinuedmidazolam (ANES) Route: IV, Drug form: SOLN, ONCE, Stop date: 02/04/16 12:52:00 CDT Start Date: 02/04/16 Stop Date: 02/04/16 Status: Completednaloxone 0.04 mg, 0.1 mL, Route: IVP, Drug form: INJ, Q2MIN, Dosing Weight 119.659, kg, PRN Narcotic Reversal, Start date: 02/04/16 14:54:00 CDT, Duration: 30 day, Stop date: 03/05/16 14:53:00 CDT Notes: Same as Narcan Start Date: 02/04/16 Stop Date: 02/08/16 Status: Discontinuedneostigmine (ANES) Route: IV, Drug form: INJ, ONCE, Stop date: 02/04/16 14:58:00 CDT Start Date: 02/04/16 Stop Date: 02/04/16 Status: CompletedNorco 10/325 oral tablet 1 tab, Route: PO, Drug Form: TAB, Dosing Weight 119.659, kg, Q4H, PRN Pain Score 1-3, Start date: 02/06/16 9:39:00 CDT, Duration: 30 day, Stop date: 9:38:00 CDT Notes: Do not exceed 4gm/day of acetaminophen. (Same as: [place] 325/10) Start Date: 02/06/16 Stop Date: 02/08/16 Status: DiscontinuedNS (Bolus) IV 500 mL, 500 ml/hr, Infuse Over: 1 hr, Route: IV, 500, Drug form: INJ, ONCE, Priority: STAT, Dosing Weight 119.659 kg, Start date: 02/05/16 0:17:00 CDT, Duration: 1 doses or times, Stop date: 02/05/16 0:17:00 CDT Start Date: 02/05/16 Stop Date: 02/05/16 Status: CompletedNS + KCL 20mEq/L 1000ml (Premix) 1,000 mL 1,000 mL, Rate: 150 ml/hr, Infuse over: 6.7 hr, Route: IV, Dosing Weight 119.659 kg, Total Volume: 1,000, Start date: 02/04/16 14:54:00 CDT, Stop date: 03/05/16 14:53:00 CDT Notes: PREMIX IV - Do Not AlterWASTE: F/P - Sink; E - Municipal Trash Bin Start Date: 02/04/16 Stop Date: 02/05/16 Status: DiscontinuedOfirmev 1,000 mg, 100 mL, Route: IV, Drug form: INJ, Q6H, Dosing Weight 119.659, kg, for > or=50 kg, Start date: 02/04/16 18:00:00 CDT, Duration: 30 day, Stop date: 03/05/16 12:00:00 CDT Notes: Infuse over 15 minutesDo not exceed 4gm/day of acetaminophen MEDICATION WASTE ProductSize: 1000 mgProduct Wasted: ___ mg Start Date: 02/04/16 Stop Date: 02/06/16 Status: Discontinuedondansetron 4 mg, 2 mL, Route: IVP, Drug form: INJ, Q6H, Dosing Weight 119.659, kg, PRN Nausea & Vomiting, Start date: 02/04/16 14:54:00 CDT, Duration: 30 day, Stop date: 03/05/16 14:53:00 CDT Notes: (Same as: Campbell) MEDICATION WASTE Product Size: 4 mgProduct Wasted: ___ mg Start Date: 02/04/16 Stop Date: 02/08/16 Status: Discontinuedondansetron (ANES) Route: IV, Drug form: INJ, ONCE, Stop date: 02/04/16 14:58:00 CDT Start Date: 02/04/16 Stop Date: 02/04/16 Status: Completedphenylephrine (ANES) Route: IV, Drug form: INJ, ONCE, Stop date: 02/04/16 13:07:00 CDT Start Date: 02/04/16 Stop Date: 02/04/16 Status: Completedpneumococcal 23-valent vaccine 0.5 mL, Route: IM, Drug Form: INJ, Daily, Start date: 02/05/16 9:00:00 CDT, Duration: 1 doses or times, Stop date: 02/05/16 9:00:00 CDT Notes: (Same as: Pneumovax 23) Refrigerate Start Date: 02/05/16 Stop Date: 02/05/16 Status: DeletedPneumovax 23 0.5 mL, Route: IM, Drug Form: INJ, Daily, Start date: 02/05/16 12:44:00 CDT, Duration: 1 doses or times, Stop date: 02/05/16 12:44:00 CDT Notes: (Same as: Pneumovax 23) Refrigerate Start Date: 02/05/16 Stop Date: 02/05/16 Status: CompletedPrinivil 20 mg, 1 tab, Route: PO, Drug form: TAB, Daily, Start date: 02/06/16 13:00:00 CDT, Duration: 30 day,Stop date: 03/07/16 9:00:00 CDT Notes: (Same as: Prinivil, Zestril) Start Date: 02/06/16 Stop Date: 02/08/16 Status: Discontinuedpromethazine + sodium chloride 0.9% INJ 50 mL 12.5 mg, 0.5 mL, Route: IVPB, Q4H, Dosing Weight 119.659, kg, PRN Nausea & Vomiting, Start date:02/04/16 14:54:00 CDT, Duration: 30 day, Stop date: 14:53:00 CDT Notes: Do not give IV push. (Same as: Phenergan) Start Date: 02/04/16 Stop Date: 02/08/16 Status: Discontinuedpropofol (ANES) Route: IV, Drug form: INJ, ONCE, Stop date: 02/04/16 12:57:00 CDT Start Date: 02/04/16 Stop Date: 02/04/16 Status: Completedrocuronium (ANES) Route: IV, Drug form: INJ, ONCE, Stop date: 02/04/16 12:57:00 CDT Start Date: 02/04/16 Stop Date: 02/04/16 Status: Completedspironolactone 25 mg, 1 tab, Route: PO, Drug form: TAB, BID, Dosing Weight 119.659, kg, Start date: 02/06/16 17:00:00 CDT, Duration: 30 day, Stop date: 03/07/16 9:00:00 CDT Notes: (Same As: Aldactone) Start Date: 02/06/16 Stop Date: 02/08/16 Status: Discontinuedspironolactone 25 mg=2 tab, PO, Daily, # 60 tab, 0 Refill(s) Start Date: 02/07/16 Status: Orderedsuccinylcholine (ANES) Route: IV, Drug form: INJ, ONCE, Stop date: 02/04/16 12:57:00 CDT Start Date: 02/04/16 Stop Date: 02/04/16 Status: CompletedTylenol with Codeine #3 oral tablet 1 tab, PO, Q6H, PRN for pain, # 30 tab, 0 Refill(s) Start Date: 02/08/16 Stop Date: 02/21/16 Status: Ordered Results ELECTROLYTES Most recent to oldest 1 2 3 4 [Reference Range]: Sodium Lvl [135-145 mEq/L] 137 mEq/L 140 mEq/L 137 mEq/L (02/06/16 11:46 AM) (02/05/16 5:00 PM) (02/05/16 5:21 AM) Potassium Lvl [3.5-5.1 4.0 mEq/L 4.6 mEq/L 5.0 mEq/L mEq/L] (02/06/16 11:46 AM) (02/05/16 5:00 PM) (02/05/16 5:21 AM) Chloride Lvl [95-109 mEq/L] 101 mEq/L 105 mEq/L 103 mEq/L (02/06/16 11:46 AM) (02/05/16 5:00 PM) (02/05/16 5:21 AM) CO2 [24-32 mEq/L] 27 mEq/L 28 mEq/L 27 mEq/L (02/06/16 11:46 AM) (02/05/16 5:00 PM) (02/05/16 5:21 AM) AGAP [10.0-20.0 mEq/L] 13.0 mEq/L 11.6 mEq/L 12.0 mEq/L (02/06/16 11:46 AM) (02/05/16 5:00 PM) (02/05/16 5:21 AM) CHEM PANEL Most recent to oldest 1 2 3 4 [Reference Range]: Creatinine Lvl 1.25 mg/dL 1.78 mg/dL 2.32 mg/dL [0.50-1.40 mg/dL] (02/06/16 11:46 AM) *HI* *HI* (02/05/16 5:00 PM) (02/05/16 5:21 AM) eGFR 77 mL/min/1.73m2 1 50 mL/min/1.73m2 2 36 mL/min/1.73m2 3 *NA* *NA* *NA* (02/06/16 11:46 AM) (02/05/16 5:00 PM) (02/05/16 5:21 AM) BUN [7-22 mg/dL] 14 mg/dL 19 mg/dL 22 mg/dL (02/06/16 11:46 AM) (02/05/16 5:00 PM) (02/05/16 5:21 AM) B/C Ratio [6-25] 10 (02/04/16 10:40 AM) Glucose Lvl [70-99 99 mg/dL 143 mg/dL 136 mg/dL mg/dL] (02/06/16 11:46 AM) *HI* *HI* (02/05/16 5:00 PM) (02/05/16 5:21 AM) Total Protein [6.4-8.4 9.1 g/dL g/dL] *HI* (02/04/16 10:40 AM) Albumin Lvl [3.5-5.0 3.4 g/dL g/dL] *LOW* (02/04/16 10:40 AM) Globulin [2.0-4.0 g/dL] 5.7 g/dL *HI* (02/04/16 10:40 AM) A/G Ratio [0.7-1.6] 0.6 *LOW* (02/04/16 10:40 AM) Calcium Lvl [8.5-10.5 9.4 mg/dL 8.8 mg/dL 8.9 mg/dL 8.9 mg/dL mg/dL] (02/06/16 11:46 AM) (02/05/16 5:00 PM) (02/05/16 5:21 AM) (02/05/16 5:21 AM) Phosphorus [2.5-4.5 3.1 mg/dL mg/dL] (02/05/16 5:21 AM) Magnesium Lvl [1.8-2.4 2.4 mg/dL mg/dL] (02/05/16 5:21 AM) ALT [0-65 unit/L] 26 unit/L (02/04/16 10:40 AM) AST [0-37 unit/L] 23 unit/L (02/04/16 10:40 AM) Alk Phos [39-136 unit/L] 62 unit/L (02/04/16 10:40 AM) Bili Total [0.2-1.3 0.5 mg/dL mg/dL] (02/04/16 10:40 AM) 1Result Comment: The eGFR is calculated using the CKD-EPI formula. In most young , healthy individualsthe eGFR will be >90 mL/min/1.73m2. The eGFR declines with age. An eGFR of 60-89 may be normal in some populations, particularly the elderly, for whom the CKD-EPI formula has not been extensively validated. Use of the eGFR is not recommended in the following populations: Individuals with unstable creatinine concentrations, including patients and those with serious co-morbid conditions. Patients with extremes in muscle mass or diet. The data above are obtained from the National Kidney Disease Education Program ( NKDEP) which additionally recommends that when the eGFR is used in patients with extremes of body mass index for purposesof drug dosing, the eGFR should be multiplied by the estimated BMI.2Result Comment: The eGFR is calculated using the CKD-EPI formula. In most young, healthy individualsthe eGFR will be >90 mL/ min/1.73m2. The eGFR declines with age. An eGFR of 60-89 may be normal in some populations, particularly the elderly, for whom the CKD-EPI formula has not been extensively validated. Use of the eGFR is not recommended in the following populations: Individuals with unstable creatinine concentrations, including patients and those with serious co-morbid conditions. Patients with extremes in muscle mass or diet. The data above are obtained from the National Kidney Disease Education Program ( NKDEP) which additionally recommends that when the eGFR is used in patients with extremes of body mass index for purposesof drug dosing, the eGFR should be multiplied by the estimated BMI.3Result Comment: The eGFR is calculated using the CKD-EPI formula. In most young, healthy individualsthe eGFR will be >90 mL/ min/1.73m2. The eGFR declines with age. An eGFR of 60-89 may be normal in some populations, particularly the elderly, for whom the CKD-EPI formula has not been extensively validated. Use of the eGFR is not recommended in the following populations: Individuals with unstable creatinine concentrations, including patients and those with serious co-morbid conditions. Patients with extremes in muscle mass or diet. The data above are obtained from the National Kidney Disease Education Program ( NKDEP) which additionally recommends that when the eGFR is used in patients with extremes of body mass index for purposesof drug dosing, the eGFR should be multiplied by the estimated BMI.URINE AND STOOL Most recent to oldest [Reference Range]: 1 2 3 4 UA Turbidity [Clear] Clear (02/04/16 10:31 AM) UA Color [Yellow] Yellow *NA* (02/04/16 10:31 AM) UA pH [5.0-8.0] 5.0 (02/04/16 10:31 AM) UA Spec Grav [<=1.030] 1.018 (02/04/16 10:31 AM) UA Glucose [Negative mg/dL] Negative mg/dL *NA* (02/04/16 10:31 AM) UA Blood [Negative] Negative (02/04/16 10:31 AM) UA Ketones [Negative mg/dL] Negative mg/dL *NA* (02/04/16 10:31 AM) UA Protein [Negative mg/dL] Negative mg/dL (02/04/16 10:31 AM) UA Urobilinogen [0.1-1.0 mg/dL] <=1.0 mg/dL *NA* (02/04/16 10:31 AM) UA Bili [Negative] Negative *NA* (02/04/16 10:31 AM) UA Leuk Est [Negative] Trace *ABN* (02/04/16 10:31 AM) UA Nitrite [Negative] Negative (02/04/16 10:31 AM) UA WBC [0-5 /HPF] 1 /HPF (02/04/16 10:31 AM) UA RBC [0-2 /HPF] <1 /HPF (02/04/16 10:31 AM) UA Bacteria [None Seen /HPF] Occasional /HPF *NA* (02/04/16 10:31 AM) UA Sq Epi [Few /LPF] Occasional /LPF *NA* (02/04/16 10:31 AM) UA Mucus [None Seen /LPF] Few /LPF *NA* (02/04/16 10:31 AM) HEMATOLOGY Most recent to oldest [Reference Range]: 1 2 3 4 WBC [3.7-10.4 K/CMM] 8.1 K/CMM (02/04/16 10:40 AM) RBC [4.70-6.10 M/CMM] 4.81 M/CMM (02/04/16 10:40 AM) Hgb [14.0-18.0 g/dL] 13.5 g/dL 14.7 g/dL *LOW* (02/04/16 10:40 AM) (02/05/16 5:21 AM) Hct [42.0-54.0 %] 41.4 % 44.8 % *LOW* (02/04/16 10:40 AM) (02/05/16 5:21 AM) MCV [80.0-94.0 fL] 93.1 fL (02/04/16 10:40 AM) MCH [27.0-31.0 pg] 30.5 pg (02/04/16 10:40 AM) MCHC [32.0-36.0 g/dL] 32.8 g/dL (02/04/16 10:40 AM) RDW [11.5-14.5 %] 13.5 % (02/04/16 10:40 AM) Platelet [133-450 K/CMM] 195 K/CMM 212 K/CMM (02/04/16 7:05 PM) (02/04/16 10:40 AM) MPV [7.4-10.4 fL] 9.5 fL (02/04/16 10:40 AM) Segs [45.0-75.0 %] 69.4 % (02/04/16 10:40 AM) Lymphocytes [20.0-40.0 %] 17.5 % *LOW* (02/04/16 10:40 AM) Monocytes [2.0-12.0 %] 9.9 % (02/04/16 10:40 AM) Eosinophils [0.0-4.0 %] 2.3 % (02/04/16 10:40 AM) Basophils [0.0-1.0 %] 0.9 % (02/04/16 10:40 AM) Segs-Bands # [1.5-8.1 K/CMM] 5.6 K/CMM (02/04/16 10:40 AM) Lymphocytes # [1.0-5.5 K/CMM] 1.4 K/CMM (02/04/16 10:40 AM) Monocytes # [0.0-0.8 K/CMM] 0.8 K/CMM (02/04/16 10:40 AM) Eosinophils # [0.0-0.5 K/CMM] 0.2 K/CMM (02/04/16 10:40 AM) Basophils # [0.0-0.2 K/CMM] 0.1 K/CMM (02/04/16 10:40 AM) PT [12.0-14.7 seconds] 13.7 seconds (02/04/16 10:40 AM) INR [0.85-1.17] 1.02 (02/04/16 10:40 AM) PTT [22.9-35.8 seconds] 29.4 seconds (02/04/16 10:40 AM) Immunizations Given and Recorded Vaccine Date Status Refusal Reason pneumococcal 23-valent vaccine 02/05/16 Given Procedures Procedure Date Related Diagnosis Body Site Operation Operation Social History Social History Type Response Substance Abuse Use: None. Alcohol Current, Type Beer. Previous treatment: None. Smoking Status Former smoker; Type: Cigarettes; Exposure to Tobacco Smoke None ; Cigarette Smoking Last 365 Days No; Reg Smoking Cessation Counseling No Assessment and Plan Extracted from: Title: Clinical Document Author: Kena Swartz MD Date: 02/07/16 Progress Daily [facility] Completed: Jan, 15:47 by Kena Swartz MD RM: [address] - 2W, SE C3BW MACK TORRES 50y (: 1965) M Attending: Kena Swartz MD Service: Colon & Rectal Surg Service Reason for Admission: K57.92 Working DRG: Major small & large bowel procedures w/o CC/USP Code status: None Specified=FULL CODE Current diet: [...] site c/d/i; no evidence of purulence ASSESSMENT & EXAM await return of GI function plan for dc home once he has flatus. pathology discussed PLAN & TREATMENT DIAGNOSES & PROBLEMS Ready for Discharge (Yes/No)? [place] still [...] Tot 967 200 767 02/05 24hr Tot 2054 700 [id number] Medications (12) Active Scheduled Meds (6): 02/06/16 amLODIPine 10 mg PO Daily 02/05/16 enoxaparin (Lovenox) 40 mg SUB-Q [id number] 02/04/16 famotidine 20 mg PO Q12H 02/06/16 hydrochlorothiazide (Microzide) 12.5 mg PO Daily 02/06/16 lisinopril (Prinivil) 20 mg PO Daily 02/06/16 spironolactone 25 mg PO BID Unscheduled Meds: None PRN Meds (5): 02/06/16 acetaminophen-hydrocodone ([place] 10/325 oral tablet) 1 tab PO Q4H 02/06/16 hydromorphone (Dilaudid) 1 mg IV Q3H 02/04/16 naloxone 0.04 mg IVP Q2MIN 02/04/16 ondansetron 4 mg IVP Q6H 02/04/16 promethazine + sodium chloride 0.9% INJ 50 mL 12.5 mg IVPB Q4H 151.5 ml/hr One Time Meds: None Continuous Infusions (1): 02/05/16 Lactated Ringers 1,000 mL 1,000 mL 60 ml/hr Extracted from: Title: Clinical Document Author: Kena Swartz MD Date: 02/04/16 PREOPERATIVE DIAGNOSIS: Sigmoid diverticulitis. POSTOPERATIVE DIAGNOSIS: Sigmoid diverticulitis. PROCEDURE PERFORMED: Laparoscopic single port left colectomy with stapled coloproctostomy, splenic flexure mobilization. Cysto-stents/ Dr Nelly WEBBER SURGEON: Dr. Swartz. AGING BOX HAND: Grace Downing PA-C. ANESTHESIA: General. IV FLUIDS: 2150 cc [...] a hemostatic fashion and we used an [place] 60 mm blue triple line Endo-OSMEL and [...] stapled coloproctostomy. We exteriorized the specimen and evacuated th e pneumoperitoneum and divided proximally in a sharp fashion with a #10 blade scalpel and passed the specimen to pathology for permanent sections and placed a 28-mm circular Covidean stapler anvil with 3-0 Prolene pursestring and reintroduced into the abdomen and performed a tension-free torsion free stapled coloproctostomy with a #28 mm circular Covidien stapler and retrieved 2 intact anastomotic rin gs. The anastomosis was tested for air leak. With rigid proctoscope, we submerged the anastomosis into normal saline in the inner pelvis and compressed proximally and insufflated air with the proctosc ope and identified no evidence of anastomotic leak. All fluid was suctioned. Hemostasis was satisfactory. We instilled 1 vial Tissel around the anastomosis and the retroperitoneal dissection plane an d the procedure was completed. We evacuated the pneumoperitoneum, we placed a single sheet of Seprafilm underneath the midline fascial edges and we approximated the midline fascia edges with #1 PDS in running fashion and obtained hemostasis and approximated the skin edges with dony. The procedure was completed. Extracted from: Title: Clinical Document Author: Kena Swartz MD Date: 02/04/16 [facility] OFFICE VISIT: KENA SWARTZ [...] responds appropriately to questions. Anorectal: Deferred ASSESSMENT & PLAN: at this time I recommend to [...] 20minutes Addendum by Kena Swartz MD on No change in the patient's condition 02/04/2016 00:07 since he was last seen in clinic.
[2019-03-13] MEDS ORDERED: Ringers Lactate 1,000 ML IV ONE ×2 (06:24→08:14)
[2019-03-13] MEDS ORDERED: CEFAZOLIN/SWI 1gm 1 GM/10 ML SYR ONE (06:24)
[2019-03-13] MEDS ORDERED: LIDOCAINE 1% MPF 30 ML VIAL ONE (07:10)
[2019-03-13] MEDS ORDERED: PROPOFOL 200 MG/20 ML VIAL IV ONE ×2 (07:10→08:12)
[2019-03-13] MEDS ORDERED: LIDOCAINE 2% MPF 5 ML VIAL ONE (07:11)
[2019-03-13] MEDS ORDERED: MIDAZOLAM HCL 2 MG/2 ML INJ ONE (07:11)
[2019-03-13] MEDS ORDERED: FENTANYL CITR 100 MCG/2 ML ONE ×2 (07:11→08:12)
[2019-03-13] MEDS ORDERED: dexAMETHasone 10 MG/ML VIAL ONE (07:43)
[2019-03-13] MEDS ORDERED: ONDANSETRON 4 MG/2 ML VIAL ONE (07:54)
[2019-03-13] MEDS ORDERED: Phenylephrine HCl 10 MG/ML 1 ML VIAL ONE (07:55)
[2019-03-13] MEDS ORDERED: NS 0.9% VIAL 10 ML ONE ×2 (07:55→08:22)
--- NOTE | 2019-03-13 10:40 | RAD REPORT ---
EXAM DESCRIPTION: RAD - Foot Right 3 View - 03/13/2019 9:41 am CLINICAL HISTORY: post-op COMPARISON: No comparisons FINDINGS: Lucency is present in the distal first metatarsal, presumably related to recent surgical i ntervention. Large calcaneal spurs are noted. Soft tissue swelling is noted along the medial forefoot .
--- NOTE | 2019-03-13 14:31 | OP ---
Date of Procedure: 03/13/2019 Surgeon: Brayan Alatorre DPM Preoperative Diagnosis: Hallux valgus deformity, right foot. Postoperative Diagnosis: Hallux valgus deformity, right foot. Procedure: Darrius bunionectomy with SonicPin fixation, 2.2 mm x 26 mm, right foot. Anesthesia: Via local infiltration. Description Of Procedure: The patient was brought into the operating room, placed on the operating t able in supine position. Once adequate IV sedation was obtained, the patient was injected with a tot al of 10 mL of 0.5% Marcaine plain. The patient was prepped and draped in usual sterile manner and t he right extremity was elevated 60 degrees for a period of 3 minutes to exsanguinate the blood supply . Pneumatic ankle tourniquet was elevated to 150 mmHg. Attention was then directed to the right ish t, where a 5 cm dorsal linear incision was made overlying the first MPJ. The incision was deepened v ia sharp and blunt dissection down to the level of the capsule. All neurologic structures were avoid ed. All bleeders were clamped and bovied. The capsular tissue was incised in an inverted L incision and freed from its bone with sharp dissection. The head of the first metatarsal was brought into vi ew and inspected and seen to be in good condition. The medial eminence was then resected utilizing a n oscillating saw. The first interspace was then approached and an adductor tenotomy, EHB tenotomy a nd lateral capsulotomy was performed. The foot was then repositioned with the knee bent and an osteo cassi was created in the head of the first metatarsal in the V-shaped fashion with the apex distally a nd the arms proximal approximately 60 degrees. Utilizing the oscillating saw from medial to lateral, the osteotomy was created. The capital fragment was shifted laterally and impacted medially upon th e shaft of the first metatarsal. The remaining medial eminence was removed utilizing the oscillating saw. Utilizing the SonicPin fixation from [employer], a K-wire was drilled into the first metatarsal c apital fragment and then fixating it upon the shaft. The drill was then used to drill over the wire. This was then removed with the wire and the SonicPin was placed into the hole and activated with th e foot pedal following proper technique and holding it for the required time. To cool, the pin was i ntact after removal of the applicator. Excellent alignment was obtained. The area was inspected and no rough edges was seen. The area was flushed with copious amounts of sterile saline. Medial capsu lorrhaphy was then performed with the toe held in corrected position utilizing 15 blade. Capsular ti ssue was then reapproximated utilizing 2-0 Vicryl suture with the toe held in corrected position. Th e skin was reapproximated after flushing with copious amounts of sterile saline. Again, this was don e prior to capsulorrhaphy. Skin was closed utilizing 4-0 Prolene horizontal mattress suture. The ar ea was dressed with Adaptic, dry sterile gauze, dry sterile Dinah, Kerlix, cold therapy pad, and Nick bandaging. Pneumatic ankle tourniquet was deflated and capillary return was seen to be instantaneous to all digits. The patient will follow my office for postoperative care and was sent to recovery in satisfactory condition. LISET/ANA Voice ID: [id number] Report ID: [id number]
--- NOTE | 2019-03-13 14:37 | DS ---
Date of Discharge: 03/13/2019 Date Of Surgery: 03/13/2019. Surgeon: Brayan Alatorre DPM Preoperative Diagnosis: Hallux valgus, right foot. Postoperative Diagnosis: Hallux valgus, right foot. Procedure: Darrius bunionectomy with SonicPin fixation, right foot. Hospital Course: The patient tolerated the procedure and anesthesia well, was sent to recovery in sa tisfactory condition, will be discharged to home per anesthesia guidelines. Patient was given writte n postop instructions with emergency phone number. Patient is given postop medication for pain and u se of a cold therapy unit. Patient may ambulate in a postop shoe to tolerance. Patient will follow in my office in 1 week for postoperative care. LIEST/ANA Voice ID: [id number] Report ID: [id number]
== END 2019-03-13 10:36 | disposition home or self-care (01) ==
LOC: OR 06:16
PROVIDERS: ATTEND Podiatrist
PROC: 0QSN04Z Reposition Right Metatarsal with Internal Fixation Device, Open Approach (ICD-10-PCS; principal; 2019-03-13 07:30)
DX: M20.11 Hallux valgus (acquired), right foot (principal); M10.9 Gout, unspecified; I10 Essential (primary) hypertension; K57.92 Diverticulitis of intestine, part unspecified, without perforation or abscess without bleeding; K21.9 Gastro-esophageal reflux disease without esophagitis; E66.9 Obesity, unspecified; Z68.39 Body mass index [BMI] 39.0-39.9, adult; Z87.891 Personal history of nicotine dependence; Z88.8 Allergy status to other drugs, medicaments and biological substances; Z83.3 Family history of diabetes mellitus; Z80.9 Family history of malignant neoplasm, unspecified
CPT/HCPCS: 93005; 85025; 80048; 36415; 85610; 85730; 71046; 73630; 28296; J2704; J2370; J2250; J3010; J1100; J0690; J2405